=== PATIENT | female | born 1935 | race Caucasian/White ===

== ENCOUNTER 2020-02-26 13:12 | Outpatient (CLI) | payer MEDICARE, SELFPAY ==
[2020-02-26 13:28] LABS: Hematocrit 38.9 % (35.0-42.0); Hemoglobin 12.4 g/dL (11.7-13.8); Mean Corpuscular HGB Conc 31.9 g/dL (32.0-36.0); Mean Corpuscular Volume 100.3 fL (78.0-102.0); Mean Platelet Volume 8.7 fl (9.2-11.8); Platelet Count Result 265 K/mm3 (150-420); Red Blood Count 3.88 M/mm3 (4.20-5.40); Red Cell Distribution Width 13.1 % (11.6-14.4); White Blood Count 5.3 K/mm3 (4.8-10.8)
[2020-02-26 14:31] LABS: Erythrocyte Sedimentation Rate 42 mm/hr (0-20)
[2020-02-26 14:34] LABS: Alanine Aminotransferase 18 U/L (14-59); Albumin Level 3.9 g/dL (3.4-5.0); Alkaline Phosphatase 62 U/L (46-116); Anion Gap 14.8 mmol/L (7-16); Aspartate Amino Transferase 24 U/L (15-37); Bilirubin,Total 0.3 mg/dL (0.00-1.00); Blood Urea Nitrogen 21 mg/dL (7-18); Calcium 9.6 mg/dL (8.5-10.1); Carbon Dioxide 27 mmol/L (21-32); Chloride 102 mmol/L (98-108); Estimated Glomerular Filt Rate 53; Glucose 115 mg/dL (70-99); Osmolality Calculated 292 mOsm/kg (285-295); Potassium 4.8 mmol/L (3.5-5.1); Sodium 139 mmol/L (136-145); Total Protein 7.2 g/dL (6.4-8.2)
== END 2020-02-26 13:13 | disposition home or self-care (01) ==
LOC: CHSLAB 13:18
PROVIDERS: PCP Family Medicine
DX: Z79.899 Other long term (current) drug therapy (principal); M06.9 Rheumatoid arthritis, unspecified
CPT/HCPCS: 36415; 80053; 85027; 85652

== ENCOUNTER 2020-06-02 13:39 | Outpatient (CLI) | payer MEDICARE, SELFPAY ==
[2020-06-02 13:52] LABS: Basophils Absolute Auto 0.02 K/mm3 (0.00-0.10); Basophils Percent Auto 0.3 % (0.0-1.0); Eosinophils Absolute Auto 0.15 K/mm3 (0.02-0.50); Hematocrit 37.7 % (35.0-42.0); Hemoglobin 12.2 g/dL (11.7-13.8); Immature Granulocyte Absolute 0.04 K/mm3 (0.00-0.00); Immature Granulocyte Percent A 0.5 % (0.0-0.0); Lymphocytes Percent Auto 25.9 % (18.0-42.0); Mean Corpuscular HGB Conc 32.4 g/dL (32.0-36.0); Mean Corpuscular Hemoglobin 32.7 pg (27.0-31.0); Mean Corpuscular Volume 101.1 fL (78.0-102.0); Mean Platelet Volume 8.8 fl (9.2-11.8); Monocytes Percent Auto 8.2 % (2.0-11.0); Neutrophils Absolute Auto 4.6 K/mm3 (1.7-7.2); Neutrophils Percent Auto 63.1 % (50.0-70.0); Platelet Count Result 268 K/mm3 (150-420); Red Blood Count 3.73 M/mm3 (4.20-5.40); Red Cell Distribution Width 13.1 % (11.6-14.4); White Blood Count 7.3 K/mm3 (4.8-10.8)
[2020-06-02 14:23] LABS: Alanine Aminotransferase 17 U/L (14-59); Albumin Level 3.6 g/dL (3.4-5.0); Alkaline Phosphatase 58 U/L (46-116); Anion Gap 7.7 mmol/L (7-16); Aspartate Amino Transferase 22 U/L (15-37); Bilirubin,Total 0.3 mg/dL (0.00-1.00); Blood Urea Nitrogen 21 mg/dL (7-18); Calcium 8.9 mg/dL (8.5-10.1); Carbon Dioxide 33 mmol/L (21-32); Chloride 103 mmol/L (98-108); Estimated Glomerular Filt Rate 51; Glucose 110 mg/dL (70-99); Osmolality Calculated 292 mOsm/kg (285-295); Potassium 4.7 mmol/L (3.5-5.1); Sodium 139 mmol/L (136-145)
[2020-06-02 14:52] LABS: Erythrocyte Sedimentation Rate 26 mm/hr (0-20)
== END 2020-06-02 13:40 | disposition home or self-care (01) ==
LOC: CHSLAB 13:44
PROVIDERS: PCP Family Medicine
DX: M06.9 Rheumatoid arthritis, unspecified (principal); Z79.899 Other long term (current) drug therapy
CPT/HCPCS: 36415; 80053; 85025; 85652

== ENCOUNTER 2020-08-19 11:21 | Outpatient (CLI) | payer MEDICARE, SELFPAY ==
[2020-08-19 11:35] LABS: Hematocrit 39.4 % (35.0-42.0); Hemoglobin 12.4 g/dL (11.7-13.8); Mean Corpuscular HGB Conc 31.5 g/dL (32.0-36.0); Mean Corpuscular Hemoglobin 31.7 pg (27.0-31.0); Mean Corpuscular Volume 100.8 fL (78.0-102.0); Mean Platelet Volume 8.6 fl (9.2-11.8); Platelet Count Result 269 K/mm3 (150-420); Red Blood Count 3.91 M/mm3 (4.20-5.40); Red Cell Distribution Width 13.3 % (11.6-14.4); White Blood Count 5.8 K/mm3 (4.8-10.8)
[2020-08-19 12:31] LABS: Alanine Aminotransferase 23 U/L (14-59); Albumin Level 3.8 g/dL (3.4-5.0); Alkaline Phosphatase 63 U/L (46-116); Anion Gap 8 mmol/L (8-16); Aspartate Amino Transferase 21 U/L (15-37); Bilirubin,Total 0.3 mg/dL (0.00-1.00); Blood Urea Nitrogen 20 mg/dL (7-18); Calcium 9.6 mg/dL (8.5-10.1); Carbon Dioxide 28 mmol/L (21-32); Chloride 103 mmol/L (98-108); Estimated Glomerular Filt Rate > 60; Glucose 107 mg/dL (70-99); Osmolality Calculated 290 mOsm/kg (285-295); Potassium 4.8 mmol/L (3.5-5.1); Sodium 139 mmol/L (136-145); Total Protein 7.3 g/dL (6.4-8.2)
[2020-08-19 12:40] LABS: Erythrocyte Sedimentation Rate 26 mm/hr (0-20)
== END 2020-08-19 11:22 | disposition home or self-care (01) ==
LOC: CHSLAB 11:25
PROVIDERS: PCP Family Medicine
DX: M06.9 Rheumatoid arthritis, unspecified (principal); Z79.899 Other long term (current) drug therapy
CPT/HCPCS: 36415; 80053; 85027; 85652

== ENCOUNTER 2020-12-03 10:37 | Outpatient (CLI) | payer MEDICARE, SELFPAY ==
[2020-12-03 11:08] LABS: Basophils Absolute Auto 0.03 K/mm3 (0.00-0.10); Basophils Percent Auto 0.5 % (0.0-1.0); Eosinophils Absolute Auto 0.08 K/mm3 (0.02-0.50); Eosinophils Percent Auto 1.4 % (1.0-6.0); Hematocrit 39.2 % (35.0-42.0); Hemoglobin 12.1 g/dL (11.7-13.8); Immature Granulocyte Absolute 0.01 K/mm3 (0.00-0.00); Immature Granulocyte Percent A 0.2 % (0.0-0.0); Lymphocytes Absolute Auto 1.66 K/mm3 (1.10-4.50); Lymphocytes Percent Auto 28.9 % (18.0-42.0); Mean Corpuscular HGB Conc 30.9 g/dL (32.0-36.0); Mean Corpuscular Volume 100.5 fL (78.0-102.0); Mean Platelet Volume 8.9 fl (9.2-11.8); Monocytes Absolute Auto 0.56 K/mm3 (0.10-0.90); Monocytes Percent Auto 9.7 % (2.0-11.0); Neutrophils Absolute Auto 3.4 K/mm3 (1.7-7.2); Neutrophils Percent Auto 59.3 % (50.0-70.0); Platelet Count Result 295 K/mm3 (150-420); Red Cell Distribution Width 13.2 % (11.6-14.4); White Blood Count 5.8 K/mm3 (4.8-10.8)
[2020-12-03 11:54] LABS: Alanine Aminotransferase 18 U/L (14-59); Albumin Level 3.7 g/dL (3.4-5.0); Alkaline Phosphatase 60 U/L (46-116); Anion Gap 4 mmol/L (8-16); Aspartate Amino Transferase 18 U/L (15-37); Bilirubin,Total 0.3 mg/dL (0.00-1.00); Blood Urea Nitrogen 22 mg/dL (7-18); Calcium 8.9 mg/dL (8.5-10.1); Carbon Dioxide 30 mmol/L (21-32); Chloride 104 mmol/L (98-108); Estimated Glomerular Filt Rate 53; Glucose 114 mg/dL (70-99); Osmolality Calculated 290 mOsm/kg (285-295); Potassium 4.6 mmol/L (3.5-5.1); Sodium 138 mmol/L (136-145); Total Protein 7.2 g/dL (6.4-8.2)
[2020-12-03 12:11] LABS: Erythrocyte Sedimentation Rate 27 mm/hr (0-20)
== END 2020-12-03 10:38 | disposition home or self-care (01) ==
LOC: CHSLAB 10:52
PROVIDERS: PCP Family Medicine
DX: M06.9 Rheumatoid arthritis, unspecified (principal); Z79.899 Other long term (current) drug therapy
CPT/HCPCS: 36415; 80053; 85025; 85652

== ENCOUNTER 2021-04-28 15:19 | Emergency (ER) | payer MEDICARE, SELFPAY ==
--- NOTE | ~2021-04-28 | CT_ITS ---
EXAMINATION: CT abdomen pelvis w con DATE: 04/28/2021 16:55 INDICATION: Left abdominal pain. Nausea. TECHNIQUE: Computed tomography (CT) of the abdomen and pelvis was performed with 100 mL Omnipaque 350 intravenous contrast. Automated exposure control and iterative reconstruction technique were employe d. The dose-length product was 213.88 mGy-cm. COMPARISON: None. FINDINGS: The visualized portions of the lung bases demonstrate mild atelectasis. No pleural effusion . The heart size is normal. No pericardial effusion. The liver and spleen are normal. There are galls tones in the gallbladder, which is distended. The pancreas and adrenal glands are normal. There are c ysts in the kidneys measuring up to 15 mm on the left. The rectum is distended. There is a large volu me of stool in the colon. The appendix is not visualized. There are no pathologically enlarged lymph nodes. There is trace pelvic ascites. There is mild lumbar spondylosis. IMPRESSION: 1. Large volume of stool in the colon with distention of the rectum. 2. Cholelithiasis. Gallbladder distention may be secondary to fasting or acute cholecystitis. Correla te with physical exam. Reviewed, dictated and finalized at location A. IMPRESSION: 1. Large volume of stool in the colon with distention of the rectum. 2. Cholelithiasis. Gallbladder distention may be secondary to fasting or acute cholecystitis. Correlate with physical exam.
[2021-04-28 15:30] VITALS: BP 165/95; PULSE 98; RESP 16; TEMP 36.9; O2SAT 100
[2021-04-28] MEDS: ONDANSETRON INJ 4 MG/2 ML VIAL IV PUSH (15:40)
[2021-04-28 16:03] LABS: Basophils Absolute Auto 0.03 K/mm3 (0.00-0.10); Basophils Percent Auto 0.3 % (0.0-1.0); Eosinophils Absolute Auto 0.02 K/mm3 (0.02-0.50); Eosinophils Percent Auto 0.2 % (1.0-6.0); Hematocrit 40.3 % (35.0-42.0); Hemoglobin 12.9 g/dL (11.7-13.8); Immature Granulocyte Absolute 0.03 K/mm3 (0.00-0.00); Immature Granulocyte Percent A 0.3 % (0.0-0.0); Lymphocytes Absolute Auto 0.68 K/mm3 (1.10-4.50); Lymphocytes Percent Auto 7.4 % (18.0-42.0); Mean Corpuscular Hemoglobin 31.9 pg (27.0-31.0); Mean Corpuscular Volume 99.5 fL (78.0-102.0); Monocytes Absolute Auto 0.25 K/mm3 (0.10-0.90); Monocytes Percent Auto 2.7 % (2.0-11.0); Neutrophils Absolute Auto 8.2 K/mm3 (1.7-7.2); Neutrophils Percent Auto 89.1 % (50.0-70.0); Platelet Count Result 256 K/mm3 (150-420); Red Blood Count 4.05 M/mm3 (4.20-5.40); Red Cell Distribution Width 13.4 % (11.6-14.4); White Blood Count 9.2 K/mm3 (4.8-10.8)
[2021-04-28 16:03] LABS: Appearance Urine Clear (Clear); Bilirubin Urine Negative (Negative); Blood Urine Negative (Negative); Glucose Urine UA Negative (Negative); Ketones Urine 2+ (Negative); Leukocyte Esterase Ur Negative LEU/UL (Negative); Nitrate Urine Negative (Negative); Protein Urine Negative (Negative); Specific Grav Ur 1.015 (1.010-1.020); Urobilinogen Urine 0.2 mg/dL (0.2-1.0)
[2021-04-28 16:10] LABS: Add Urine Microscopic? YES; Color Urine Light Yellow (Yellow); RBC Urine 0-2 /hpf (0-2)
[2021-04-28 16:11] LABS: Bacteria Urine None seen /hpf; Squamous Epithelial Cell Urine Occasional /hpf (Few); WBC Urine 0-3 /hpf (0-3)
[2021-04-28] MEDS: KETOROLAC 15 MG/ML VIAL (*BKC) IV PUSH (16:13)
[2021-04-28 16:16] LABS: Alanine Aminotransferase 16 U/L (14-59); Albumin Level 3.9 g/dL (3.4-5.0); Alkaline Phosphatase 67 U/L (46-116); Anion Gap 9 mmol/L (8-16); Aspartate Amino Transferase 19 U/L (15-37); Bilirubin,Total 0.5 mg/dL (0.00-1.00); Blood Urea Nitrogen 19 mg/dL (7-18); Calcium 9.9 mg/dL (8.5-10.1); Carbon Dioxide 28 mmol/L (21-32); Chloride 101 mmol/L (98-108); Estimated CRCL calculation 33 ml/min; Estimated Glomerular Filt Rate 52; Glucose 106 mg/dL (70-99); Osmolality Calculated 288 mOsm/kg (285-295); Potassium 4.2 mmol/L (3.5-5.1); Sodium 138 mmol/L (136-145); Total Protein 7.7 g/dL (6.4-8.2)
--- NOTE | 2021-04-28 16:28 | PC.NURSE ---
PT RESTING ON STRETCHER, PT CONTINUES TO C/O PAIN. PT SPO2 DECREASES TO 85% ON RA WHEN FALLING ASLEEP. PT PLACED ON 2 LITERS O2/NC.
--- NOTE | 2021-04-28 16:42 | PC.NURSE ---
RN offered for family to come back to ER Room 1. pt states not until after her CT scan is completed
--- NOTE | 2021-04-28 16:49 | ED.ABDPAIN ---
HPI - Abdominal Pain General Chief Complaint: Nausea/Vomiting/Diarrhea Stated Complaint: side pain,nausea Source: patient Mode of arrival: ambulatory Limitations: no limitations History of Present Illness HPI narrative: Patient comes in with nausea and left flank pain which she states has been ongoing for about the past 2 hours prior to presentation. She denies any LLQ pain. Pain is in flank, dull or crampy, mild to moderately severe, and ongoing. She states she has had chronic constipation, but has been bno worse lately with regards to this. MD elicited complaint: abdominal pain Pertinent past history: none Onset (ago): hour(s) Pain Consistency: constant Location: L flank Severity: moderate Quality: cramping and aching Radiation: none Migration to: no migration Exacerbating factors: nothing Relieving factors: nothing Associated symptoms: nausea Treatments prior to arrival: NSAIDs Related Data Home Medications Medication Instructions Recorded Confirmed aspirin 81 mg tablet,delayed 81 mg PO DAILY 03/29/20 04/28/21 release folic acid 1 mg tablet 1 mg PO DAILY 03/29/20 04/28/21 methotrexate sodium 2.5 mg tablet 10 mg PO WEEKLY tablet 03/29/20 04/28/21 omega-3 fatty acids 1,000 mg 1,000 mg PO DAILY 03/29/20 04/28/21 capsule Allergies Allergy/AdvReac Type Severity Reaction Status Date / Time Sulfa (Sulfonamide Allergy Unknown Unknown Verified 08/15/20 14:21 Antibiotics) Review of Systems Constitutional: Constitutional: Reports no additional constitutional complaints Eyes: Eyes: Reports no additional eye complaints ENT: Reports system reviewed and no additional complaints, except as documented Cardiovascular: Cardiovascular: Reports no additional cardiovascular complaints Respiratory: Respiratory: Reports no additional respiratory complaints Gastrointestinal: Gastrointestinal: Reports no additional gastrointestinal complaints Genitourinary: Genitourinary: Reports no additional female genitourinary complaints Musculoskeletal: Musculoskeletal: Reports no additional musculoskeletal complaints Integumentary/Breasts: Skin/Breast: Reports system reviewed and no additional complaints, except as docu Neurologic: Reports system reviewed and no additional complaints, except as documented Psychiatric: Psychiatric: Reports no additional psychiatric complaints Endocrine: Endocrine: Reports no additional endocrine complaints Hematologic/Lymphatic: Hematologic/Lymphatic: Reports no additional hematologic/lymphatic complaints Allergic/Immunologic: Allergic/Immunologic: Reports no additional allergic/immunologic complaints PMFSH Past Medical History Medical History Abnormal EKG Cataract, cortical, left eye Contracture of hand Herpes zoster PVC's (premature ventricular contractions) Rheumatoid arthritis Surgical History Surgical History History of appendectomy Hx of hysterectomy, total Family History Family History Mother Hypertension Family history of malignant neoplasm of breast in first degree relative Father Family history of cardiovascular disease Social History Social History Smoking status: Never smoker Second hand tobacco smoke exposure: No Alcohol intake: never Substance use: never Substance use type: does not use Gender identity (if verbalized by the patient): Female Exam Const: General: no acute distress and alert Orientation/consciousness: patient oriented x3 HENMT: Head: normal to inspection Ears: external ears normal General nose exam: Normal external nose present Mouth: Yes Normal oral and palatal mucosa present Throat: posterior oropharynx normal Eyes: Conjunctivae: conjunctivae normal Neck: Neck: normal visual inspection Chest: Chest palpation & ins
[2021-04-28] MEDS: MUPIROCIN 2% OINT 22 GM TUBE 1 APPLIC EXTERNAL (17:00)
[2021-04-28 18:00] VITALS: BP 123/69; PULSE 80; RESP 14; O2SAT 99
== END 2021-04-28 18:08 | disposition home or self-care (01) ==
PROVIDERS: Emergency Provider Emergency Medicine; PCP Physician Assistant
DX: K59.00 Constipation, unspecified (principal)
CPT/HCPCS: 36415; 74177; 80053; 81001; 83605; 85025; 96374; 96375; 99283; 99284; A9270; J1885; J2405; Q9967

== ENCOUNTER 2021-05-23 14:01 | Emergency (ER) | payer MEDICARE, SELFPAY ==
[2021-05-23] VITALS (7 sets, daily range): BP systolic 144–162; BP diastolic 76–100; PULSE 75–90; RESP 18–20; TEMP 36.6; O2SAT 100
--- NOTE | ~2021-05-23 | XR_ITS ---
EXAMINATION: XR abdomen/kub 1V DATE: 05/23/2021 18:42 INDICATION: Constipation TECHNIQUE: Supine and upright views of the abdomen. FINDINGS: No prior studies for comparison. The visualized lung parenchyma is normal.. There is a nonobstructive bowel gas pattern. Gas and stool are seen throughout the colon to the level of the rectum. There is no free air. Calcifications in t he pelvis are believed to be phleboliths. IMPRESSION: 1. No acute abdominal abnormality. Reviewed, dictated and finalized at location A.
--- NOTE | ~2021-05-23 | CT_ITS ---
EXAMINATION: CT abdomen pelvis w con DATE: 05/23/2021 20:37 INDICATION: Abdominal pain TECHNIQUE: Computed tomography (CT) of the abdomen and pelvis was performed with 100 cc Omnipaque 350 intravenous contrast. The dose-length product was 227.08 mGy-cm. Automated exposure control and iter ative reconstruction technique were employed. COMPARISON: CT dated 04/28/2021. FINDINGS: There is bibasilar atelectasis/scarring. Cardiomegaly. No significant pleural or pericardia l effusion. There is thickening of the distal esophagus and the gastric mucosa. No obstruction. There is distention of the gallbladder with multiple stones. There is mild intrahepatic biliary dilatation. The spleen, pancreas, adrenal glands are unremarkable. There are bilateral renal cysts. Small amount of free fluid in the pelvis. Moderate colonic fecal lo ading. No free air. No significant vascular abnormality. No lymphadenopathy. Moderate osteoarthritis of the hips. Mild lumbar spondylosis. Small low-density lesion of the liver near the falciform ligame nt, likely fatty infiltration. IMPRESSION: 1. Thickening of the distal esophagus and stomach, suspicious for inflammatory changes (i.e. esophagi tis/gastritis). 2: Persistent dilation of the gallbladder with stones. Consider cholecystitis in the appropriate clin ical setting. 3: Nonspecific free fluid in the pelvis. Reviewed, dictated and finalized at location A. IMPRESSION: 1. Thickening of the distal esophagus and stomach, suspicious for inflammatory changes (i.e. esophagitis/gastritis). 2: Persistent dilation of the gallbladder with stones. Consider cholecystitis i n the appropriate clinical setting. 3: Nonspecific free fluid in the pelvis.
--- NOTE | 2021-05-23 19:10 | ED.GENADULT ---
HPI - General Adult General Chief complaint: Unspecified Stated complaint: Constipation Time Seen by Provider: 05/23/21 19:07 Source: patient, family and RN notes reviewed Mode of arrival: ambulatory Limitations: no limitations History of Present Illness HPI narrative: Patient is 85 years old white female came with her daughter from home complaining of constipation. Started at the beginning of April 2021, was seen at emergency room on April 28 and was diagnosed of constipation, discharged on Dulcolax, MiraLAX and another 2 stool softener. No improvement. Later was seen by her family physician and was discharged on Linzess, Metamucil, MiraLAX and to stool softeners. No improvement. Scheduled to see Dr. Bernal next week. Patient had Fleet enema today without good results. Patient's daughter is concerned about what is going on. Patient denies any fever, chills, nausea, vomiting. History of RA, appendectomy and hysterectomy, patient does not smoke or drink or uses drugs, patient denied any change of her diet or activity or any new medication for the last few months. Related Data Home Medications Medication Instructions Recorded Confirmed aspirin 81 mg tablet,delayed 81 mg PO DAILY 03/29/20 05/03/21 release folic acid 1 mg tablet 1 mg PO DAILY 03/29/20 05/03/21 methotrexate sodium 2.5 mg tablet 10 mg PO WEEKLY tablet 03/29/20 05/03/21 calcium carbonate 600 mg (1,500 cap PO 05/03/21 05/03/21 mg)-vitamin D3 500 unit capsule Allergies Allergy/AdvReac Type Severity Reaction Status Date / Time Sulfa (Sulfonamide Allergy Unknown Unknown Verified 05/23/21 18:22 Antibiotics) Review of Systems Review of Systems: Narrative: CONSTITUTIONAL: Denies fever, chills, or sweats. EYES: Denies visual changes, redness, or discharge. ENT: Denies rhinorrhea, congestion, sore throat, or otalgia. CARDIOVASCULAR: Denies chest pain, palpitations, or edema. RESPIRATORY: Denies cough or dyspnea. GASTROINTESTINAL: Denies abdominal pain, nausea, vomiting, or diarrhea. GENITOURINARY: Denies dysuria or hematuria. SKIN: Denies rash or itching. MUSCULOSKELETAL: Denies back pain, joint pain, or myalgia. NEUROLOGIC: Denies headache, numbness, or weakness. PSYCHIATRIC: Denies anxiety or depression. 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 PVC's (premature ventricular contractions) Rheumatoid arthritis Surgical History Surgical History History of appendectomy Hx of hysterectomy, total Family History Family History Mother Hypertension Family history of malignant neoplasm of breast in first degree relative Father Family history of cardiovascular disease Social History Social History Smoking status: Never smoker Second hand tobacco smoke exposure: No Alcohol intake: never Substance use: never Substance use type: does not use Gender identity (if verbalized by the patient): Female Exam Narrative: Exam Narrative: General appearance: Well-developed, well-nourished Skin: Normal color Head: Normocephalic, nontraumatic Eyes: Clear conjunctiva ENT: Oropharynx normal, ears normal, nose normal Neck: Supple, nontender Chest and respiratory: Airway patent, no respiratory distress, no accessory muscle use Heart: Regular rate/rhythm Abdomen: Soft, nontender, no organomegaly, quiet bowel sounds Vascular: Normal peripheral pulses, normal capillary refill. Musculoskeletal: Normal range of motion, nontender back Neurologic: Alert and oriented ?3, [employer] is normal as tested, no gross motor deficit
[2021-05-23 20:06] LABS: Basophils Percent Auto 0.1 % (0.2-1.2); Hematocrit 34.8 % (37.0-47.0); Hemoglobin 11.2 g/dL (12.0-15.0); Immature Granulocyte Absolute 0.11 K/mm3 (0.00-0.031); Immature Granulocyte Percent A 1.4 % (0-0.5); Lymphocytes Percent Auto 14.4 % (18.3-44.2); Mean Corpuscular HGB Conc 32.2 g/dl (32-36); Mean Corpuscular Hemoglobin 30.9 pg (26-34); Mean Corpuscular Volume 95.9 fl (80-100); Mean Platelet Volume 8.4 fl (7.4-10.4); Monocytes Absolute Auto 0.4 K/mm3 (0.1-0.6); Monocytes Percent Auto 4.6 % (2.6-8.5); Neutrophils Absolute Auto 6.1 K/mm3 (1.3-6.7); Neutrophils Percent Auto 79.5 % (45.5-73.1); Platelet Count Result 375 k/mm3 (150-375); Red Blood Count 3.63 M/mm3 (4.2-5.4); Red Cell Distribution Width 13.2 % (11.5-14.5); White Blood Count 7.7 K/mm3 (4.5-10.0)
[2021-05-23 20:09] LABS: Add Urine Microscopic? NO; Appearance Urine Clear (Clear); Bilirubin Urine Negative (Negative); Blood Urine Negative (Negative); Color Urine Straw (Yellow); Glucose Urine UA Negative (Negative); Ketones Urine Negative (Negative); Leukocyte Esterase Ur Negative LEU/UL (Negative); Nitrate Urine Negative (Negative); Protein Urine Negative (Negative); Specific Grav Ur 1.006 (1.001-1.035); Urobilinogen Urine Negative mg/dL (<2.0)
[2021-05-23 20:17] LABS: Alanine Aminotransferase 33 U/L (4-35); Albumin Level 3.7 g/dL (3.5-5.1); Alkaline Phosphatase 79 U/L (38-126); Anion Gap 6 mmol/L (8-16); Aspartate Amino Transferase 45 U/L (14-36); Bilirubin,Total 0.3 mg/dL (0.2-1.3); Blood Urea Nitrogen 18 mg/dL (7-17); Calcium 9.2 mg/dL (8.4-10.2); Carbon Dioxide 25 mmol/L (22-30); Chloride 103 mmol/L (98-107); Estimated CRCL calculation 45 ml/min; Estimated Glomerular Filt Rate > 60; Glucose 120 mg/dL (65-105); Potassium 4.5 mmol/L (3.4-5.0); Sodium 134 mmol/L (137-145)
[2021-05-23] MEDS: SODIUM CHLORIDE 0.9% IV 1,000 ML 500 ML IV CONT (21:15)
== END 2021-05-23 22:28 | disposition home or self-care (01) ==
PROVIDERS: Emergency Provider Emergency Medicine; PCP Physician Assistant
DX: K59.00 Constipation, unspecified (principal); K20.90 Esophagitis, unspecified without bleeding; M06.9 Rheumatoid arthritis, unspecified; K80.20 Calculus of gallbladder without cholecystitis without obstruction
CPT/HCPCS: 36415; 74018; 74177; 80053; 81003; 85025; 96360; 99284; J7030; Q9967

== ENCOUNTER 2021-06-28 06:50 | Day surgery (SDC) | payer MEDICARE, SELFPAY ==
[2021-06-09 12:03] VITALS: BMI 19.6
[2021-06-15 13:05] VITALS: BMI 19.6
[2021-06-28 08:31] VITALS: BP 137/64; PULSE 80; RESP 14; TEMP 36.6; O2SAT 98
[2021-06-28 08:35] VITALS: BMI 19.0
[2021-06-28] MEDS: LACTATED RINGERS 1,000 ML 150 ML IV CONT (08:45)
--- NOTE | 2021-06-28 08:49 | WPDANESEPPF ---
Anes - Initial Pre Proc Eval Procedure: Operation Date: 06/28/21 09:15 Proposed Procedures p Esophagogastroduodenoscopy & Colonoscopy - Clark Chauhan MD Date/Time: 06/28/21 08:49 Surgeon: Clark Chauhan MD Pre Op Diagnosis: constipation, change in bowel habits, Abnormal CT Patient Data Age: 85 Gender: F Height: 1.7 m Weight: 55 kg Last Vital Signs Temp 36.6 C 06/28/21 08:31 Pulse 80 06/28/21 08:31 Resp 14 06/28/21 08:31 BP 137/64 06/28/21 08:31 Pulse Ox 98 06/28/21 08:31 Allergies Allergy/AdvReac Type Severity Reaction Status Date / Time Sulfa (Sulfonamide Allergy Intermediate Redness of Verified 06/28/21 08:31 Antibiotics) Skin Home Medications Medication Instructions Recorded Confirmed Type aspirin 81 mg tablet,delayed 81 mg PO DAILY 03/29/20 06/09/21 History release folic acid 1 mg tablet 1 mg PO DAILY 03/29/20 06/09/21 History methotrexate sodium 2.5 mg tablet 10 mg PO WEEKLY tablet 03/29/20 06/09/21 History calcium carbonate 600 mg (1,500 1 cap PO DAILY 05/03/21 06/09/21 History mg)-vitamin D3 500 unit capsule raloxifene 60 mg tablet 60 mg PO DAILY 90 Days #90 tablet 05/19/21 06/09/21 Rx docusate sodium [Stool Softener] 100 mg PO BID 06/09/21 06/09/21 History polyethylene glycol 3350 [Miralax] 17 g PO BID 06/09/21 06/09/21 History Patient hx anesthesia problems: none Family hx anesthesia problems: none PMFSH Past Medical History Medical History Abnormal EKG Cataract, cortical, left eye Cholelithiases Contracture of hand Herpes zoster PVC's (premature ventricular contractions) Rheumatoid arthritis Surgical History Surgical History History of appendectomy Hx of hysterectomy, total Family History Family History Mother Hypertension Family history of malignant neoplasm of breast in first degree relative Father Family history of cardiovascular disease Social History Social History Smoking status: Never smoker Second hand tobacco smoke exposure: No Alcohol intake: never Substance use: never Substance use type: does not use Living arrangements: with family Gender identity (if verbalized by the patient): Female Spiritual care concerns: No Anes - Eval Final PreProcedure Day of Procedure 06/28/21 08:49 Patient weight: thin Heart: regular rate and rhythm Lungs: clear to auscultation Airway: Mallampati scale class II Neurological: alert and oriented Last oral intake: >/= 8 hours ASA classification: III Emergent: no Anesthetic plan: proceed Anesthesia type and monitoring: general GIVS and standard monitoring Informed Consent: The patient's anesthetic plan and its attendant risks and benefits were discussed with the patient/family/POA. Questions were solicited and answers provided to the satisfaction of the patient/family/POA.
--- NOTE | 2021-06-28 09:09 | WPDGICN ---
Assessment and Plan Assessment and plan (1) Constipation: Qualifiers: Constipation type: unspecified constipation type Qualified Code(s): K59.00 - Constipation, unspecified Code(s): K59.00 - Constipation, unspecified Status: Acute Assessment and Plan: patient with chronic idiopathic constipation. Currently she has control of this with MiraLax and stool softeners taken on a daily basis. Colonoscopy to evaluate because of chronic constipation to be performed this report follows separately. (2) Cholelithiases: Code(s): K80.20 - Calculus of gallbladder without cholecystitis without obstruction Status: Acute Assessment and Plan: Patient has gallstones identified on CT scan. These appear to be asymptomatic. Plan is for observation (3) Abnormal CT scan: Code(s): R93.89 - Abnormal findings on diagnostic imaging of other specified body structures Status: Acute Assessment and Plan: CT scan raised the question of thickening of the esophagus. Patient denies dysphagia or heartburn. Plan is for EGD to exclude significant pathology. Further recommendations will be given after endoscopy. GI Consult Note Consult date/time: 06/28/21 09:09 HPI: Vicenta Driver is a 85 year old female Presents for GI endoscopy because of abnormal CT scan. Patient has a long history of constipation typically controlled with MiraLax and stool softeners. She recently was given a trial of Linzess but this failed to control her constipation. Because of increased constipation she went to the ER a CT scan was performed. CT scan suggests thickening to her esophagus gallstones and constipation with retained stool. Patient has subsequently re implemented her regime of MiraLax and stool softeners with good response. Her bowel habits have returned to normal. She currently denies any abdominal pain. She has had no dysphagia. She has no heartburn. Patient presents today because of thickening of the esophagus seen on CT scan and because of her constipation. Review of Systems Review of Systems: All systems reviewed & are unremarkable except as noted in HPI and below PMFSH Past Medical History Medical History Abnormal EKG Cataract, cortical, left eye Cholelithiases Contracture of hand Herpes zoster PVC's (premature ventricular contractions) Rheumatoid arthritis Surgical History Surgical History History of appendectomy Hx of hysterectomy, total Family History Family History Mother Hypertension Family history of malignant neoplasm of breast in first degree relative Father Family history of cardiovascular disease Social History Social History Smoking status: Never smoker Second hand tobacco smoke exposure: No Alcohol intake: never Substance use: never Substance use type: does not use Living arrangements: with family Gender identity (if verbalized by the patient): Female Spiritual care concerns: No Meds Home Medications and Allergies Home Medications Medication Instructions Recorded Confirmed Type aspirin 81 mg tablet,delayed 81 mg PO DAILY 03/29/20 06/09/21 History release folic acid 1 mg tablet 1 mg PO DAILY 03/29/20 06/09/21 History methotrexate sodium 2.5 mg tablet 10 mg PO WEEKLY tablet 03/29/20 06/09/21 History calcium carbonate 600 mg (1,500 1 cap PO DAILY 05/03/21 06/09/21 History mg)-vitamin D3 500 unit capsule raloxifene 60 mg tablet 60 mg PO DAILY 90 Days #90 tablet 05/19/21 06/09/21 Rx docusate sodium [Stool Softener] 100 mg PO BID 06/09/21 06/09/21 History polyethylene glycol 3350 [Miralax] 17 g PO BID 06/09/21 06/09/21 History Allergies Allergy/AdvReac Type Severity Reaction Status Date / Time Sulfa (Sulfonamide Sunny
[2021-06-28 09:56] VITALS: BP 97/56; PULSE 73; RESP 20; O2SAT 100
[2021-06-28 10:06] VITALS: BP 108/71; PULSE 71; RESP 20; O2SAT 100
[2021-06-28 10:16] VITALS: BP 126/75; PULSE 61; RESP 18; O2SAT 100
== END 2021-06-28 10:30 | disposition home or self-care (01) ==
PROVIDERS: PCP Physician Assistant; Visit Provider Internal Medicine Gastroenterology
PROC: 0DJ08ZZ Inspection of Upper Intestinal Tract, Via Natural or Artificial Opening Endoscopic (ICD-10-PCS; CPT 43235; principal; 2021-06-28 09:15)
DX: Z12.11 Encounter for screening for malignant neoplasm of colon (principal); K64.8 Other hemorrhoids; K57.30 Diverticulosis of large intestine without perforation or abscess without bleeding; K59.00 Constipation, unspecified; K80.20 Calculus of gallbladder without cholecystitis without obstruction; M06.9 Rheumatoid arthritis, unspecified; I49.3 Ventricular premature depolarization; Z79.82 Long term (current) use of aspirin
CPT/HCPCS: 43235; G0121; J7120

== ENCOUNTER 2021-07-26 14:27 | Outpatient (CLI) | payer MEDICARE, SELFPAY ==
--- NOTE | ~2021-07-26 | XR_ITS ---
EXAMINATION: XR_CERV2-3V_CR DATE: 07/26/2021 14:50 INDICATION: Neck pain. TECHNIQUE: 3 views of cervical spine on 4 radiographs were obtained. COMPARISON: Cervical spine radiographs 02/26/2011 FINDINGS: There is 14 degrees dextroscoliosis of cervicothoracic spine. Vertebral body heights are no rmal. There is mildly decreased disc height at C4-C5 and C5-C6. There is multilevel moderate facet kathleen int osteoarthritis. No central canal stenosis or prevertebral soft tissue swelling. IMPRESSION: 1. Mild cervical spondylosis. 2. Cervicothoracic dextroscoliosis. Reviewed, dictated and finalized at location A.
== END 2021-07-26 14:28 | disposition home or self-care (01) ==
LOC: CHSIMG 14:29
PROVIDERS: PCP Internal Medicine; Visit Provider Internal Medicine
DX: M54.2 Cervicalgia (principal); M81.0 Age-related osteoporosis without current pathological fracture
CPT/HCPCS: 72040

== ENCOUNTER 2021-07-28 12:12 | Outpatient (CLI) | payer MEDICARE, SELFPAY ==
--- NOTE | ~2021-07-28 | DEXA_ITS ---
Bone Density Report Name: Vicenta Driver Age: 85 Sex: Female Ethnicity: White Date of : 1935 Indication: postmenopausal; screening for osteoporosis; height loss; rheumatoid arthritis; Referring Provider: Madhav Aguayo Study: Bone densitometry was performed. Exam Date: July 28, 2021 Accession number: [id number] Bone Density: Region BMD T-score Z-score Classification AP Spine(L1, L2, L3) 1.198 1.6 4.4 Normal Femoral Neck (Left) 0.939 0.8 3.3 Normal Total Hip (Left) 0.920 -0.2 2.1 Normal Femoral Neck (Right) 1.041 1.7 4.2 Normal Total Hip (Right) 0.984 0.3 2.7 Normal Femoral Neck Mean 0.990 1.3 3.8 Normal Total Hip Mean 0.952 0.1 2.4 Normal World Health Organization criteria for BMD impression classify patients as: Normal (T-score at or above -1.0), Osteopenia (T-score between -1.0 and -2.5), or Osteoporosis (T-score at or below -2.5). 10-year Fracture Risk: FRAX not reported because: All T-scores for Spine Total, Hip Total, Femoral Neck at or above -1.0 Clinical Information Provided by Patient: Has rheumatoid arthritis Has used the following medications: Evista (i.e. raloxifene) Patient maximum height was 68 Menopause Age: 33 No regular weight bearing exercise Drinks caffeinated beverages Onset of menses at age 13 Number of children 3 Impression: The patient has normal bone mass. Discussion: LOW RISK OF FRACTURE; BONE DENSITY IS WELL ABOVE THE MINIMUM DESIRABLE LEVEL AND ABOVE AVERAGE FOR AGE AND SEX AT ALL SKELETAL SITES TESTED. This person's bone density is above expected limits for age and sex. This is rarely clinically significant, but should be pursued if there are significant musculoskeletal complaints. The patient should follow a healthful lifestyle (good nutrition with adequate calcium and vitamin D, and appropriate weight-bearing exercise). Follow-Up: Consider repeating this study in 5 years or sooner if there is some new clinical indication. Reported by: Dr. Romero Norton on 07/28/2021 12:39:00 PM. Reviewed, dictated and finalized at location A. [facility]
== END 2021-07-28 12:13 | disposition home or self-care (01) ==
LOC: CHSIMG 12:13
PROVIDERS: PCP Internal Medicine; Visit Provider Internal Medicine
DX: M81.0 Age-related osteoporosis without current pathological fracture (principal)
CPT/HCPCS: 77080

== ENCOUNTER 2021-07-31 13:59 | Outpatient (RCR) | payer MEDICARE, SELFPAY ==
--- NOTE | 2021-07-31 14:53 | PTOPEVAL ---
Thank you for referring Vicenta Driver to [facility].? The patient is scheduled to be seen for therapy? ____x/week for ___ weeks. Please review, sign, date and return this plan of care GENA. I agree with and certify that the following plan of care is medically necessary. Referring Physician Date Admitting Provider: Attending Provider: Madhav Aguayo MD Referring Provider: *PT Outpatient Evaluation Start: 07/31/21 14:01 Freq: Status: Active Protocol: Document 07/31/21 14:05 ACR (Rec: 07/31/21 14:48 ACR [id number]) Therapy Assessment Status Assessment Status Assessment Status Evaluation Outpatient Past Medical History Neurological History Hx Neurological Disorders No Significant History Cardiovascular History Hx Cardiac Disorders No Significant History Respiratory History Hx Respiratory Disorders No Significant History Gastrointestinal History Hx Appendectomy Yes Hx Irritable Bowel Yes: CONSTIPATION Hx Polyps Yes Genitourinary History Hx Genitourinary Disorders No Significant History Musculoskeletal History Hx Orthopedic Surgery Yes: R-KNEE 2018 TORN MENISCUS Hx Rheumatoid Arthritis Yes Hematological History Hx Hematological Disorders No Significant History Endocrine History Hx Endocrine Disorders No Significant History HEENT History Hx Cataracts Yes: L-EYE SURGERY 2019 Integumentary History Hx Shingles Yes Reproductive History Hx Hysterectomy Yes: AGE 33 CERVICAL CANCER Psychosocial History Hx Psychiatric Disorders No Significant History Pain History History of Any Previous or Ongoing No Significant History Instance of Pain Anesthesia History Hx Anesthesia Reactions No Significant History Other History Hx Cancer Yes: CERVICAL CANCER Evaluation Information Problem Diagnosis Neck pain Onset 07/17/21 Subjective Information Patient states that she Query Text:As Reported By Patient/ started having neck pain a Family couple weeks ago. She has a history of RA, and thinks the neck pain is flaring up from that. She got an X-ray which showed some arthritis. Patient denies radicular symptoms. She states that the worst thing is sleeping because her muscles feel like they are pulling. She is feeling much better, but use to have difficulty with looking/
--- NOTE | 2021-08-28 14:51 | PTOPEVAL ---
Thank you for referring Vicenta Driver to [facility].? The patient is scheduled to be seen for therapy? ____x/week for ___ weeks. Please review, sign, date and return this plan of care GENA. I agree with and certify that the following plan of care is medically necessary. Referring Physician Date Admitting Provider: Attending Provider: Madhav Aguayo MD Referring Provider: *PT Outpatient Evaluation Start: 07/31/21 14:01 Freq: Status: Active Protocol: Document 08/28/21 13:57 ACR (Rec: 08/28/21 14:51 ACR [email or web address]) Therapy Assessment Status Assessment Status Assessment Status Discharge Outpatient Past Medical History Neurological History Hx Neurological Disorders No Significant History Cardiovascular History Hx Cardiac Disorders No Significant History Respiratory History Hx Respiratory Disorders No Significant History Gastrointestinal History Hx Appendectomy Yes Hx Irritable Bowel Yes: CONSTIPATION Hx Polyps Yes Genitourinary History Hx Genitourinary Disorders No Significant History Musculoskeletal History Hx Orthopedic Surgery Yes: R-KNEE 2018 TORN MENISCUS Hx Rheumatoid Arthritis Yes Hematological History Hx Hematological Disorders No Significant History Endocrine History Hx Endocrine Disorders No Significant History HEENT History Hx Cataracts Yes: L-EYE SURGERY 2019 Integumentary History Hx Shingles Yes Psychosocial History Hx Psychiatric Disorders No Significant History Pain History History of Any Previous or Ongoing No Significant History Instance of Pain Anesthesia History Hx Anesthesia Reactions No Significant History Other History Hx Cancer Yes: CERVICAL CANCER Evaluation Information Problem Diagnosis neck pain Onset 07/17/21 Subjective Information Patient states that the last Query Text:As Reported By Patient/ couple of weeks she has had no Family pain and the therapy is really helping. Patient states that she is able to sleep through the night and does not have any pain when she lays down. Patient states that looking up to the top cabinet and in her blind spots is much easier as well. Pain Assessment Timing of Pain Assessment Timing of Pain Assessment Assessment Pain Scale Pain Scale Used Numeric (1 - 10) Self Report Pain Assessment Neck Reported Pain Level 0 Lowest Pain Intensity 0 Greatest Pain Intensity
== END 2021-08-28 16:20 | disposition home or self-care (01) ==
LOC: CHSPT 13:59
PROVIDERS: PCP Internal Medicine; Visit Provider Internal Medicine
DX: M47.812 Spondylosis without myelopathy or radiculopathy, cervical region (principal); M54.2 Cervicalgia
CPT/HCPCS: 97110; 97140; 97161

== ENCOUNTER 2021-09-23 10:45 | Outpatient (CLI) | payer MEDICARE, SELFPAY ==
[2021-09-23 11:00] LABS: Hemoglobin 12.1 g/dL (11.7-13.8); Mean Corpuscular HGB Conc 31.8 g/dL (32.0-36.0); Mean Corpuscular Hemoglobin 31.8 pg (27.0-31.0); Mean Corpuscular Volume 99.7 fL (78.0-102.0); Mean Platelet Volume 8.7 fl (9.2-11.8); Platelet Count Result 311 K/mm3 (150-420); Red Blood Count 3.81 M/mm3 (4.20-5.40); Red Cell Distribution Width 14.3 % (11.6-14.4); White Blood Count 6.7 K/mm3 (4.8-10.8)
[2021-09-23 11:59] LABS: Erythrocyte Sedimentation Rate 35 mm/hr (0-20)
[2021-09-23 12:23] LABS: Alanine Aminotransferase 22 U/L (14-59); Albumin Level 3.6 g/dL (3.4-5.0); Alkaline Phosphatase 69 U/L (46-116); Anion Gap 8 mmol/L (8-16); Aspartate Amino Transferase 20 U/L (15-37); Bilirubin,Total 0.3 mg/dL (0.00-1.00); Blood Urea Nitrogen 18 mg/dL (7-18); Calcium 9.3 mg/dL (8.5-10.1); Carbon Dioxide 31 mmol/L (21-32); Chloride 103 mmol/L (98-108); Estimated Glomerular Filt Rate > 60; Glucose 121 mg/dL (70-99); Osmolality Calculated 296 mOsm/kg (285-295); Potassium 4.6 mmol/L (3.5-5.1); Sodium 142 mmol/L (136-145); Total Protein 7.1 g/dL (6.4-8.2)
== END 2021-09-23 10:46 | disposition home or self-care (01) ==
LOC: CHSLAB 10:49
PROVIDERS: PCP Internal Medicine
DX: M05.9 Rheumatoid arthritis with rheumatoid factor, unspecified (principal); Z79.899 Other long term (current) drug therapy
CPT/HCPCS: 36415; 80053; 85027; 85652

== ENCOUNTER 2022-10-31 12:17 | Outpatient (CLI) | payer MEDICARE, SELFPAY ==
[2022-10-31 12:34] LABS: Hemoglobin 11.9 g/dL (11.7-13.8); Mean Corpuscular HGB Conc 31.3 g/dL (32.0-36.0); Mean Corpuscular Hemoglobin 31.8 pg (27.0-31.0); Mean Corpuscular Volume 101.6 fL (78.0-102.0); Mean Platelet Volume 8.7 fl (9.2-11.8); Platelet Count Result 306 K/mm3 (150-420); Red Blood Count 3.74 M/mm3 (4.20-5.40); Red Cell Distribution Width 14.5 % (11.6-14.4); White Blood Count 5.8 K/mm3 (4.8-10.8)
[2022-10-31 13:12] LABS: Alanine Aminotransferase 15 U/L (14-59); Albumin Level 3.6 g/dL (3.4-5.0); Alkaline Phosphatase 59 U/L (46-116); Anion Gap 2 mmol/L (8-16); Aspartate Amino Transferase 19 U/L (15-37); Bilirubin,Total 0.2 mg/dL (0.00-1.00); Blood Urea Nitrogen 20 mg/dL (7-18); Calcium 9.5 mg/dL (8.5-10.1); Carbon Dioxide 33 mmol/L (21-32); Chloride 104 mmol/L (98-108); Estimated Glomerular Filt Rate 56; Glucose 72 mg/dL (70-99); Osmolality Calculated 289 mOsm/kg (285-295); Potassium 4.8 mmol/L (3.5-5.1); Sodium 139 mmol/L (136-145)
[2022-10-31 13:37] LABS: Erythrocyte Sedimentation Rate 24 mm/hr (0-30)
== END 2022-10-31 12:18 | disposition home or self-care (01) ==
DX: Z79.899 Other long term (current) drug therapy (principal)
CPT/HCPCS: 36415; 80053; 85027; 85652

== ENCOUNTER 2023-05-13 17:19 | Outpatient (CLI) | payer MEDICARE, SELFPAY ==
[2023-05-13 17:41] LABS: Mean Corpuscular HGB Conc 31.4 g/dL (32.0-36.0); Mean Corpuscular Hemoglobin 32.4 pg (27.0-31.0); Mean Corpuscular Volume 102.9 fL (78.0-102.0); Platelet Count Result 280 K/mm3 (150-420); Red Cell Distribution Width 13.2 % (11.6-14.4); White Blood Count 6.1 K/mm3 (4.8-10.8)
[2023-05-13 18:17] LABS: Alanine Aminotransferase 15 U/L (14-59); Albumin Level 3.4 g/dL (3.4-5.0); Alkaline Phosphatase 67 U/L (46-116); Anion Gap 8 mmol/L (8-16); Aspartate Amino Transferase 18 U/L (15-37); Bilirubin,Total 0.2 mg/dL (0.00-1.00); Blood Urea Nitrogen 24 mg/dL (7-18); Calcium 8.8 mg/dL (8.5-10.1); Carbon Dioxide 29 mmol/L (21-32); Chloride 104 mmol/L (98-108); Estimated Glomerular Filt Rate 59; Glucose 99 mg/dL (70-99); Osmolality Calculated 296 mOsm/kg (285-295); Potassium 4.5 mmol/L (3.5-5.1); Sodium 141 mmol/L (136-145); Total Protein 6.9 g/dL (6.4-8.2)
[2023-05-13 19:26] LABS: Erythrocyte Sedimentation Rate 37 mm/hr (0-30)
== END 2023-05-13 17:20 | disposition home or self-care (01) ==
LOC: CHSLAB 17:26
PROVIDERS: PCP Internal Medicine
DX: M05.79 Rheumatoid arthritis with rheumatoid factor of multiple sites without organ or systems involvement (principal); Z79.899 Other long term (current) drug therapy
CPT/HCPCS: 36415; 80053; 85027; 85652

== ENCOUNTER 2023-12-13 16:15 | Outpatient (CLI) | payer MEDICARE, SELFPAY ==
[2023-12-13 16:35] LABS: Basophils Absolute Auto 0.02 K/mm3 (0.00-0.10); Basophils Percent Auto 0.4 % (0.0-1.0); Eosinophils Absolute Auto 0.17 K/mm3 (0.02-0.50); Eosinophils Percent Auto 3.1 % (1.0-6.0); Hematocrit 35.3 % (35.0-42.0); Immature Granulocyte Absolute 0.02 K/mm3 (0.00-0.00); Immature Granulocyte Percent A 0.4 % (0.0-0.0); Lymphocytes Absolute Auto 1.64 K/mm3 (1.10-4.50); Lymphocytes Percent Auto 29.7 % (18.0-42.0); Mean Corpuscular HGB Conc 31.2 g/dL (32.0-36.0); Mean Corpuscular Volume 99.4 fL (78.0-102.0); Mean Platelet Volume 8.8 fl (9.2-11.8); Monocytes Absolute Auto 0.46 K/mm3 (0.10-0.90); Monocytes Percent Auto 8.3 % (2.0-11.0); Neutrophils Absolute Auto 3.2 K/mm3 (1.7-7.2); Neutrophils Percent Auto 58.1 % (50.0-70.0); Platelet Count Result 271 K/mm3 (150-420); Red Blood Count 3.55 M/mm3 (4.20-5.40); Red Cell Distribution Width 13.7 % (11.6-14.4); White Blood Count 5.5 K/mm3 (4.8-10.8)
[2023-12-13 16:58] LABS: Alanine Aminotransferase 18 U/L (14-59); Albumin Level 3.3 g/dL (3.4-5.0); Alkaline Phosphatase 60 U/L (46-116); Anion Gap 7 mmol/L (8-16); Aspartate Amino Transferase 19 U/L (15-37); Bilirubin,Total 0.3 mg/dL (0.00-1.00); Blood Urea Nitrogen 19 mg/dL (7-18); Calcium 8.8 mg/dL (8.5-10.1); Carbon Dioxide 31 mmol/L (21-32); Chloride 103 mmol/L (98-108); Estimated Glomerular Filt Rate > 60; Glucose 89 mg/dL (70-99); Osmolality Calculated 293 mOsm/kg (285-295); Potassium 4.4 mmol/L (3.5-5.1); Sodium 141 mmol/L (136-145)
[2023-12-13 17:33] LABS: Erythrocyte Sedimentation Rate 45 mm/hr (0-30)
== END 2023-12-13 16:16 | disposition home or self-care (01) ==
LOC: CHSLAB 16:20
PROVIDERS: PCP Internal Medicine
DX: Z79.899 Other long term (current) drug therapy (principal)
CPT/HCPCS: 36415; 80053; 85025; 85652

== ENCOUNTER 2024-06-01 14:59 | Outpatient (CLI) | payer MEDICARE, SELFPAY ==
[2024-06-01 15:29] LABS: Hematocrit 36.1 % (35.0-42.0); Hemoglobin 11.4 g/dL (11.7-13.8); Mean Corpuscular HGB Conc 31.6 g/dL (32-36); Mean Corpuscular Hemoglobin 31.9 pg (27.0-31.0); Mean Corpuscular Volume 101.1 fL (78.0-102.0); Mean Platelet Volume 8.7 fl (9.2-11.8); Platelet Count Result 282 K/mm3 (150-420); Red Blood Count 3.57 M/mm3 (4.20-5.40); Red Cell Distribution Width 13.5 % (11.6-14.4); White Blood Count 6.3 K/mm3 (4.8-10.8)
[2024-06-01 16:29] LABS: Erythrocyte Sedimentation Rate 37 mm/hr (0-30)
[2024-06-01 16:51] LABS: Alanine Aminotransferase 20 U/L (14-59); Albumin Level 3.8 g/dL (3.4-5.0); Alkaline Phosphatase 59 U/L (46-116); Anion Gap 7 mmol/L (4-12); Aspartate Amino Transferase 23 U/L (15-37); Bilirubin,Total 0.3 mg/dL (0.00-1.00); Blood Urea Nitrogen 22 mg/dL (7-18); Calcium 9.6 mg/dL (8.5-10.1); Carbon Dioxide 29 mmol/L (21-32); Chloride 102 mmol/L (98-108); Estimated Glomerular Filt Rate 48; Glucose 93 mg/dL (70-99); Osmolality Calculated 289 mOsm/kg (285-295); Potassium 4.6 mmol/L (3.5-5.1); Sodium 138 mmol/L (136-145); Total Protein 7.1 g/dL (6.4-8.2)
== END 2024-06-01 15:00 | disposition home or self-care (01) ==
LOC: CHSLAB 15:15
PROVIDERS: PCP Internal Medicine
DX: M05.9 Rheumatoid arthritis with rheumatoid factor, unspecified (principal); Z79.899 Other long term (current) drug therapy
CPT/HCPCS: 36415; 80053; 85027; 85652